=== PATIENT | male | born 1940 | race Caucasian/White ===

== ENCOUNTER 2024-01-22 12:29 | Emergency (ER) | payer MEDICARE, BC ==
[~2024-01-22] VITALS: Ht 162.6 cm; Wt 93.0 kg
[~2024-01-22 12:29] MED LIST: ALLO100T PO; CARV3.122 PO; METF-442 PO; PRED2.5T PO; TEST2.5G2 TD; VALS40TA4 PO
[2024-01-22] MEDS ORDERED: ACETAMINOPHEN ES 500 MG TABLET ONE (13:12)
[2024-01-22] MEDS ORDERED: TDAP [DIPH/PERTUSSIS/TET] 0.5 ML VIAL IM ONE (13:12)
[2024-01-22] MEDS: ACETAMINOPHEN ES 500 MG TABLET PO ONE (13:16)
[2024-01-22 13:17] VITALS: TEMP 98.5
[2024-01-22] MEDS: TDAP [DIPH/PERTUSSIS/TET] 0.5 ML VIAL IM ONE (13:17)
[2024-01-22 15:07] VITALS: BP 129/66; O2SAT 98
== END 2024-01-22 15:10 | disposition home or self-care (01) ==
LOC: ER 12:31
DX: S51.811A Laceration without foreign body of right forearm, initial encounter (principal); S90.32XA Contusion of left foot, initial encounter; I10 Essential (primary) hypertension; E11.9 Type 2 diabetes mellitus without complications; M10.9 Gout, unspecified; Z88.8 Allergy status to other drugs, medicaments and biological substances; W18.39XA Other fall on same level, initial encounter; Y93.89 Activity, other specified; Y92.89 Other specified places as the place of occurrence of the external cause; Y99.8 Other external cause status
CPT/HCPCS: 99283; 90471; 90715; 73630; A6403 ×2